=== PATIENT | male | born 1970 | race Caucasian/White ===

== ENCOUNTER 2020-06-20 11:13 | Outpatient (CLI) | payer OTHER, SELFPAY ==
--- NOTE | 2020-06-20 12:06 | ECG_ITS ---
Measurements Intervals [place] Rate: 79 P: 54 MN: 152 QRS: 54 QRSD: 97 T: 51 QT: 380 QTc: 437 Interpretive Statements SINUS RHYTHM DELAYED PRECORDIAL R/S TRANSITION BORDERLINE ECG Electronically Signed On 06-20-2020 12:26:44 CDT by Noe Valero D.O.
[2020-06-20 13:04] LABS: Vitamin D 25 Hydroxy 69.4 ng/mL
== END 2020-06-20 11:14 | disposition home or self-care (01) ==
LOC: ANHLAB 11:19
DX: E55.9 Vitamin D deficiency, unspecified (principal); Z13.89 Encounter for screening for other disorder; Z13.6 Encounter for screening for cardiovascular disorders
CPT/HCPCS: 36415; 82306; 93005